=== PATIENT | male | born 1940 | race African-American/Black ===

== ENCOUNTER 2017-07-04 10:51 | Emergency (ER) | payer MEDICARE, MEDICAID ==
[~2017-07-04] VITALS: Ht 177.8 cm; Wt 68.0 kg
[~2017-07-04 10:51] MED LIST: AMLODIPINE; ATENOLOL; ATORVASTATIN; DIALYVITE; DICLOFENAC; DIPHENOXYLATE; RENVELA
[2017-07-04] MEDS ORDERED: ONDANSETRON HCL 4MG/2ML VIAL IV STA (11:04)
[2017-07-04] MEDS ORDERED: FAMOTIDINE 20MG/2ML VIAL IV STA (11:04)
[2017-07-04 11:21] VITALS: BP 132/70
[2017-07-04 11:43] LABS: MEAN CORPUSCULAR HEMOGLOBIN 30.9 pg (28.0-32.0); MEAN CORPUSCULAR VOLUME 92.3 fL (80.0-94.0); MEAN PLATELET VOLUME 9.1 fl (7.4-10.4); PLATELET 166 x1000/uL (130-400); RED BLOOD CELL COUNT 3.57 mill/uL (4.7-6.1); RED CELL DISTRIBUTION WIDTH 14.3 % (11.6-14.6)
[2017-07-04 11:50] LABS: PROTHROMBIN TIME 10.4 sec (9.4-11.6)
[2017-07-04 12:01] LABS: CARBON DIOXIDE 37 mEq/L (21-32); CHLORIDE 94 mEq/L (98-107); TROPONIN I < 0.02 ng/mL (0.00-0.04)
[2017-07-04 12:26] LABS: PLATELET ESTIMATE NORMAL
== END 2017-07-04 12:32 | disposition left against medical advice (07) ==
LOC: ER 10:58 → CANBEDREQ 12:24 → ER 12:32
DX: R07.89 Other chest pain (principal); E87.2 Acidosis; D64.9 Anemia, unspecified; N18.6 End stage renal disease; F17.200 Nicotine dependence, unspecified, uncomplicated; I12.0 Hypertensive chronic kidney disease with stage 5 chronic kidney disease or end stage renal disease; Z99.2 Dependence on renal dialysis
CPT/HCPCS: 36415; 71010; 80053; 83605; 83690; 84484; 85025; 85610; 93005; 99285; J3490

== ENCOUNTER 2017-12-21 23:50 | Inpatient (IN) | payer MEDICARE, MEDICAID ==
[~2017-12-21] VITALS: Ht 175.3 cm; Wt 68.5 kg
[~2017-12-21 23:50] MED LIST changes: -AMLODIPINE; +AMLODIPINE PO; +ASPI-1159 PO; -ATENOLOL; -ATORVASTATIN; +ATORVASTATIN PO; -DIALYVITE; +DIALYVITE PO; -DICLOFENAC; +DICLOFENAC PO; -DIPHENOXYLATE; +DIPHENOXYLATE PO; +FAMO-134 PO; +PROC10TA PO; -RENVELA
[2017-12-21] MEDS ORDERED: ALBUTEROL (0.083%) 2.5MG/3ML NEB HHN STA (23:57)
[2017-12-21] MEDS ORDERED: METHYLPREDNISOLONE SOD SUCC 125 MG/2 ML VIAL IV STA (23:57)
[2017-12-21] MEDS ORDERED: IPRATROPIUM BROMIDE (0.02%) 0.5MG/2.5ML NEB HHN STA (23:57)
[2017-12-22] MEDS ORDERED: ASPIRIN 81MG TABLET PO ONE
[2017-12-22] MEDS ORDERED: LEVOFLOXACIN 750MG PREMIX 150 ML IV ONE
[2017-12-22] MEDS ORDERED: MAGNESIUM 2 G PREMIX 50 ML IV ONE
[2017-12-22 00:32] LABS: BG BASE EXCESS -0.7 mmol/L (-2.0-2.0); BG CARBOXYHEMOGLOBIN 1.8 % (0.5-1.5); BG DEOXYHEMOGLOBIN 4.4 % (0.0-5.0); BG FRACTION INSPIRED OXYGEN 60; BG HCO3 ACT 30.3 mmol/L (22.0-26.0); BG METHEMOGLOBIN 0.3 % (0.0-1.5); BG OXYHEMOGLOBIN 93.5 % (94.0-97.0); BG PCO2 86.5 mmHg (35.0-45.0); BG PH 7.162 (7.350-7.450); BG PO2 104.7 mmHg (75.0-100.0); BG SAMPLE SITE LEFT RADIAL; BG TOTAL HEMOGLOBIN 13.2 g/dL (12.0-18.0); BG VENT MODE MASK - AEROSOL
[2017-12-22 00:52] LABS: BASOPHILS % 0.9 % (0.0-2.0); EOSINOPHILS % 2.8 % (0.0-5.0); HEMATOCRIT. 38.8 % (42.0-52.0); HEMOGLOBIN. 12.6 g/dL (14.0-18.0); LYMPHOCYTES % 44.5 % (20.0-50.0); MEAN CORPUSCULAR HEMOGLOBIN 31.9 pg (28.0-32.0); MEAN CORPUSCULAR VOLUME 98.2 fL (80.0-94.0); MEAN PLATELET VOLUME 9.3 fl (7.4-10.4); NEUTROPHILS % 46.8 % (40.0-76.0); PLATELET 297 x1000/uL (130-400); RED BLOOD CELL COUNT 3.95 mill/uL (4.7-6.1); RED CELL DISTRIBUTION WIDTH 16.8 % (11.6-14.6)
[2017-12-22 00:53] LABS: CHLORIDE 95 mEq/L (98-107)
[2017-12-22 00:56] LABS: INR 1.1; PROTHROMBIN TIME 10.9 sec (9.4-11.6)
[2017-12-22 00:57] LABS: ETHANOL BLOOD < 10 mg/dL
[2017-12-22 10:06] VITALS: BP 145/76
[2017-12-22 10:08] VITALS: BP 145/76
[2017-12-22] MEDS ORDERED: ONDANSETRON HCL 4MG/2ML VIAL IV PRN (10:15)
[2017-12-22] MEDS ORDERED: MAGNESIUM/ALUMINUM HYDROXIDE/SIMETHICONE 30ML UDC PO PRN (10:15)
[2017-12-22] MEDS ORDERED: NA PHOS,M-B/NA PHOS,DI-BA ENEMA 118ML PR PRN (10:15)
[2017-12-22] MEDS ORDERED: ENOXAPARIN 40MG/0.4ML SYR SUBCUT SCH (10:15)
[2017-12-22] MEDS ORDERED: HYDROMORPHONE HCL/PF 2MG/ML CPJ IV PRN (10:15)
[2017-12-22] MEDS ORDERED: CLONIDINE 0.1MG TABLET PO PRN (10:15)
[2017-12-22] MEDS ORDERED: LEVOFLOXACIN 500MG PREMIX 100 ML IV SCH (10:15)
[2017-12-22] MEDS ORDERED: HYDROCODONE/ACETAMINOPHEN 5/325MG TABLET PO PRN (10:15)
[2017-12-22] MEDS ORDERED: IPRATROPIUM/ALBUTEROL 0.5-3(2.5)MG/3ML NEB INH PRN (10:15)
[2017-12-22] MEDS ORDERED: ACETAMINOPHEN 325MG TABLET PO PRN (10:15)
[2017-12-22] MEDS ORDERED: DEXTROSE 50% WATER 50ML SYRINGE IV PRN (10:30)
[2017-12-22] MEDS: BLOOD SUGAR DIAGNOSTIC STRIP TEST SCH ×3 (12:15→21:00)
[2017-12-22] MEDS: INSULIN LISPRO 100 UNITS/ML SUBCUT SCH ×3 (12:15→21:00)
[2017-12-22] MEDS: CARVEDILOL 6.25 MG TABLET PO SCH ×2 (12:30→21:10)
[2017-12-22] MEDS: ENOXAPARIN 30MG/0.3ML SYR SUBCUT SCH (12:34)
[2017-12-22 13:30] VITALS: BP 146/71
[2017-12-22 16:13] VITALS: BP 148/79
[2017-12-22] MEDS ORDERED: DIPHENOXYLATE PO PRN (19:00)
[2017-12-22] MEDS ORDERED: DIPHENOXYLATE/ATROPINE 2.5/0.025MG TABLET PO PRN (19:30)
[2017-12-22 20:00] VITALS: BP 123/66
[2017-12-22] MEDS: ATORVASTATIN CALCIUM 40MG TABLET PO SCH (21:10)
[2017-12-22] MEDS: GUAIFENESIN 200MG/10ML SUGAR FREE UDC PO PRN (21:17)
[2017-12-22 22:00] VITALS: BP 123/60
[2017-12-22] MEDS: LORAZEPAM 2MG/ML CPJ IV PRN (23:55)
[2017-12-23] VITALS (10 sets, daily range): BP systolic 113–136; BP diastolic 51–77
[2017-12-23] MEDS: INSULIN LISPRO 100 UNITS/ML SUBCUT SCH ×4 (07:51→20:46)
[2017-12-23] MEDS: BLOOD SUGAR DIAGNOSTIC STRIP TEST SCH ×4 (07:51→20:46)
[2017-12-23] MEDS: DICLOFENAC SODIUM 75MG DR (EC) TABLET PO SCH (08:18)
[2017-12-23] MEDS: FAMOTIDINE 20MG TABLET PO SCH (08:18)
[2017-12-23] MEDS: DOCUSATE SODIUM 100MG CAPSULE PO PRN (08:18)
[2017-12-23] MEDS: ENOXAPARIN 30MG/0.3ML SYR SUBCUT SCH (08:19)
[2017-12-23] MEDS: CARVEDILOL 6.25 MG TABLET PO SCH ×2 (08:19→20:43)
[2017-12-23] MEDS: ASPIRIN 81MG EC TABLET PO SCH (08:19)
[2017-12-23] MEDS: NICOTINE 21MG PATCH TD SCH (08:19)
[2017-12-23] MEDS: FOLIC ACID/VITAMIN B COMP W-C TABLET PO SCH (08:25)
[2017-12-23] MEDS: GUAIFENESIN 200MG/10ML SUGAR FREE UDC PO PRN ×2 (08:31→23:54)
[2017-12-23] MEDS ORDERED: FAMOTIDINE(NEO) 1MG/ML SUSP PO SCH (09:00)
[2017-12-23] MEDS ORDERED: DICLOFENAC 75 MG PO SCH (09:00)
[2017-12-23] MEDS ORDERED: DIALYVITE PO SCH (09:00)
[2017-12-23 10:31] LABS: BASOPHILS % 0.9 % (0.0-2.0); EOSINOPHILS % 0.7 % (0.0-5.0); HEMOGLOBIN. 10.6 g/dL (14.0-18.0); LYMPHOCYTES % 16.1 % (20.0-50.0); MEAN CORPUSCULAR HEMOGLOBIN 32.2 pg (28.0-32.0); MONOCYTES % 8.3 % (2.0-8.0); PLATELET 185 x1000/uL (130-400); RED CELL DISTRIBUTION WIDTH 16.9 % (11.6-14.6)
[2017-12-23 10:43] LABS: CHLORIDE 104 mEq/L (98-107)
[2017-12-23 10:53] LABS: LDL CHOLESTEROL 46 mg/dL (5-100)
[2017-12-23 10:55] LABS: T4 FREE 1.31 ng/dL (0.76-1.46)
[2017-12-23 11:01] LABS: HDL CHOLESTEROL 41 mg/dL (40-59)
[2017-12-23] MEDS: ATORVASTATIN CALCIUM 40MG TABLET PO SCH (20:42)
[2017-12-23] MEDS ORDERED: LEVOFLOXACIN 500MG PREMIX 100 ML IV SCH (23:00)
[2017-12-23] MEDS: LORAZEPAM 2MG/ML CPJ IV PRN (23:45)
[2017-12-24] VITALS (8 sets, daily range): BP systolic 110–145; BP diastolic 65–79
[2017-12-24 06:14] LABS: EOSINOPHILS % 2.7 % (0.0-5.0); HEMATOCRIT. 31.3 % (42.0-52.0); HEMOGLOBIN. 10.5 g/dL (14.0-18.0); MEAN CORPUSCULAR HEMOGLOBIN 32.3 pg (28.0-32.0); MEAN CORPUSCULAR VOLUME 96.6 fL (80.0-94.0); MEAN PLATELET VOLUME 9.2 fl (7.4-10.4); MONOCYTES % 9.4 % (2.0-8.0); NEUTROPHILS % 54.9 % (40.0-76.0); PLATELET 183 x1000/uL (130-400); RED BLOOD CELL COUNT 3.24 mill/uL (4.7-6.1); RED CELL DISTRIBUTION WIDTH 16.5 % (11.6-14.6)
[2017-12-24] MEDS: BLOOD SUGAR DIAGNOSTIC STRIP TEST SCH ×4 (07:48→21:08)
[2017-12-24] MEDS: INSULIN LISPRO 100 UNITS/ML SUBCUT SCH ×4 (08:00→21:00)
[2017-12-24] MEDS: CARVEDILOL 6.25 MG TABLET PO SCH ×2 (08:27→21:05)
[2017-12-24] MEDS: FAMOTIDINE 20MG TABLET PO SCH (08:33)
[2017-12-24] MEDS: DICLOFENAC SODIUM 75MG DR (EC) TABLET PO SCH (08:33)
[2017-12-24] MEDS: FOLIC ACID/VITAMIN B COMP W-C TABLET PO SCH (08:33)
[2017-12-24] MEDS: DOCUSATE SODIUM 100MG CAPSULE PO PRN (08:34)
[2017-12-24] MEDS: ASPIRIN 81MG EC TABLET PO SCH (08:34)
[2017-12-24] MEDS: NICOTINE 21MG PATCH TD SCH (08:34)
[2017-12-24] MEDS: ENOXAPARIN 30MG/0.3ML SYR SUBCUT SCH (08:35)
[2017-12-24] MEDS ORDERED: DIPHENOXYLATE/ATROPINE 2.5/0.025MG TABLET PO PRN (16:15)
[2017-12-24] MEDS: ATORVASTATIN CALCIUM 40MG TABLET PO SCH (21:05)
== END 2017-12-24 21:15 | disposition home or self-care (01) | DRG 177 ==
LOC: ER 23:50 → 5EST 12-22 01:08 → EDBEDREQ 12-22 01:10 → ENRESERV 12-22 08:48
PROVIDERS: ADMIT Internal Medicine; ATTEND Internal Medicine
PROC: 5A09357 Assistance with Respiratory Ventilation, Less than 24 Consecutive Hours, Continuous Positive Airway Pressure (ICD-10-PCS; principal; 2017-12-22)
PROC: 5A1D70Z Performance of Urinary Filtration, Intermittent, Less than 6 Hours Per Day (ICD-10-PCS; 2017-12-22)
PROC: 5A1D70Z Performance of Urinary Filtration, Intermittent, Less than 6 Hours Per Day (ICD-10-PCS; 2017-12-23)
DX: J69.0 Pneumonitis due to inhalation of food and vomit (principal); N18.6 End stage renal disease; J96.22 Acute and chronic respiratory failure with hypercapnia; I13.2 Hypertensive heart and chronic kidney disease with heart failure and with stage 5 chronic kidney disease, or end stage renal disease; E87.2 Acidosis; Z76.82 Awaiting organ transplant status; E46 Unspecified protein-calorie malnutrition; I50.43 Acute on chronic combined systolic (congestive) and diastolic (congestive) heart failure; J44.1 Chronic obstructive pulmonary disease with (acute) exacerbation; J44.0 Chronic obstructive pulmonary disease with (acute) lower respiratory infection; E11.51 Type 2 diabetes mellitus with diabetic peripheral angiopathy without gangrene; I25.5 Ischemic cardiomyopathy; E78.5 Hyperlipidemia, unspecified; D64.9 Anemia, unspecified; I25.118 Atherosclerotic heart disease of native coronary artery with other forms of angina pectoris; E11.22 Type 2 diabetes mellitus with diabetic chronic kidney disease; F17.210 Nicotine dependence, cigarettes, uncomplicated; I25.2 Old myocardial infarction; Z79.82 Long term (current) use of aspirin; Z95.1 Presence of aortocoronary bypass graft; Z95.2 Presence of prosthetic heart valve; Z86.73 Personal history of transient ischemic attack (TIA), and cerebral infarction without residual deficits; Z79.899 Other long term (current) drug therapy; Z71.6 Tobacco abuse counseling; Z99.2 Dependence on renal dialysis; Z68.22 Body mass index [BMI] 22.0-22.9, adult
CPT/HCPCS: 36415; 36600; 71045; 80048; 80053; 80061; 82375; 82805; 82962; 83605; 83690; 83880; 84439; 84443; 84484; 85025; 85610; 87040; 87804; 93005; 93306; 93970; 94640; 94660; 96365; 96375; 99291; G0482; J1650; J1956; J2060; J2930; J3475; J7030; J7050; J7611; J7620

== ENCOUNTER 2018-01-28 00:37 | Inpatient (IN) | payer MEDICARE, MEDICAID ==
[~2018-01-28] VITALS: Ht 154.7 cm; Wt 73.1 kg
[~2018-01-28 00:37] MED LIST changes: -PROC10TA PO; +PROC10TA13 PO
[2018-01-28] MEDS ORDERED: NITROGLYCERIN 0.4MG TABLET SL SL PRN (01:00)
[2018-01-28] MEDS ORDERED: ASPIRIN 81MG TABLET PO ONE (01:00)
[2018-01-28] MEDS ORDERED: FUROSEMIDE 40MG/4ML VIAL IV ONE (01:00)
[2018-01-28] MEDS ORDERED: NITROGLYCERIN 0.4MG TABLET SL SL ONE (01:01)
[2018-01-28 01:26] LABS: BASOPHILS % 1.1 % (0.0-2.0); HEMATOCRIT. 39.3 % (42.0-52.0); HEMOGLOBIN. 12.8 g/dL (14.0-18.0); LYMPHOCYTES % 43.2 % (20.0-50.0); MEAN CORPUSCULAR HEMOGLOBIN 32.5 pg (28.0-32.0); MEAN CORPUSCULAR VOLUME 99.7 fL (80.0-94.0); MEAN PLATELET VOLUME 9.4 fl (7.4-10.4); MONOCYTES % 5.1 % (2.0-8.0); NEUTROPHILS % 47.6 % (40.0-76.0); PLATELET 202 x1000/uL (130-400); RED BLOOD CELL COUNT 3.94 mill/uL (4.7-6.1); RED CELL DISTRIBUTION WIDTH 15.1 % (11.6-14.6)
[2018-01-28 01:34] LABS: CHLORIDE 103 mEq/L (98-107)
[2018-01-28 01:37] LABS: INR 1.1; PARTIAL THROMBOPLASTIN TIME 24.3 sec (23.4-31.0); PROTHROMBIN TIME 11.4 sec (9.4-11.6)
[2018-01-28 10:20] VITALS: BP 137/111
[2018-01-28] MEDS ORDERED: IPRATROPIUM/ALBUTEROL 0.5-3(2.5)MG/3ML NEB HHN PRN (11:15)
[2018-01-28] MEDS ORDERED: CLONIDINE 0.1MG TABLET PO PRN (11:15)
[2018-01-28] MEDS ORDERED: DEXTROSE 50% WATER 50ML SYRINGE IV PRN (11:15)
[2018-01-28 12:00] VITALS: BP 144/60
[2018-01-28] MEDS: AMLODIPINE 10MG TABLET PO SCH (12:00)
[2018-01-28] MEDS: FOLIC ACID/VITAMIN B COMP W-C TABLET PO SCH (12:20)
[2018-01-28] MEDS: ASPIRIN 81MG TABLET PO SCH (12:21)
[2018-01-28] MEDS: BLOOD SUGAR DIAGNOSTIC STRIP TEST SCH ×3 (12:22→21:11)
[2018-01-28] MEDS: INSULIN LISPRO 100 UNITS/ML SUBCUT SCH ×2 (12:22→21:00)
[2018-01-28] MEDS ORDERED: LEVOFLOXACIN 500MG TABLET PO SCH (15:00)
[2018-01-28] MEDS ORDERED: BUDESONIDE 0.5MG/2ML NEB HHN SCH (15:00)
[2018-01-28] MEDS: ENOXAPARIN 30MG/0.3ML SYR SUBCUT SCH (15:25)
[2018-01-28 16:00] VITALS: BP 120/69
[2018-01-28 20:00] VITALS: BP 156/74
[2018-01-28] MEDS ORDERED: ATORVASTATIN CALCIUM 10MG TABLET PO SCH (21:00)
[2018-01-29] VITALS: BP 101/50
[2018-01-29 04:00] VITALS: BP 112/56
[2018-01-29] MEDS: BLOOD SUGAR DIAGNOSTIC STRIP TEST SCH ×2 (07:40→12:28)
[2018-01-29 08:00] VITALS: BP 131/58
[2018-01-29] MEDS: INSULIN LISPRO 100 UNITS/ML SUBCUT SCH ×2 (08:10→12:28)
[2018-01-29] MEDS: FOLIC ACID/VITAMIN B COMP W-C TABLET PO SCH (08:24)
[2018-01-29] MEDS: AMLODIPINE 10MG TABLET PO SCH (08:24)
[2018-01-29] MEDS: ASPIRIN 81MG TABLET PO SCH (08:24)
[2018-01-29] MEDS: ENOXAPARIN 30MG/0.3ML SYR SUBCUT SCH (08:25)
[2018-01-29 10:19] LABS: EOSINOPHILS % 4.7 % (0.0-5.0); HEMATOCRIT. 36.7 % (42.0-52.0); HEMOGLOBIN. 12.2 g/dL (14.0-18.0); LYMPHOCYTES % 25.4 % (20.0-50.0); MEAN CORPUSCULAR HEMOGLOBIN 32.8 pg (28.0-32.0); MEAN CORPUSCULAR VOLUME 98.9 fL (80.0-94.0); MONOCYTES % 9.9 % (2.0-8.0); PLATELET 164 x1000/uL (130-400); RED BLOOD CELL COUNT 3.71 mill/uL (4.7-6.1); RED CELL DISTRIBUTION WIDTH 15.4 % (11.6-14.6)
[2018-01-29 12:00] VITALS: BP 128/53
[2018-01-29 12:55] VITALS: BP 137/51
[2018-01-29 17:01] LABS: *AMPHETAMINES SCREEN URINE NEGATIVE (NEGATIVE)
[2018-01-29 17:02] LABS: *BARBITURATES SCREEN URINE NEGATIVE (NEGATIVE); CANNABINOID URINE SCREEN NEGATIVE (NEGATIVE); METHADONE URINE SCREEN NEGATIVE (NEGATIVE); OPIATES URINE SCREEN PRESUMTIVE POSITIVE (NEGATIVE); PHENCYCLIDINE URINE SCREEN NEGATIVE (NEGATIVE)
[2018-01-29 17:03] LABS: *BENZODIAZEPINES SCREEN URINE NEGATIVE (NEGATIVE); *COCAINE SCREEN URINE NEGATIVE (NEGATIVE)
== END 2018-01-29 14:35 | disposition home or self-care (01) | DRG 871 ==
LOC: ER 00:46 → EDBEDREQSVC 01:33 → EDBEDREQTM 01:33 → EDBEDREQ 01:33 → EDBEDREQSVC 06:02 → 7WST 06:02 → ENRESERV 09:53
PROVIDERS: ADMIT Internal Medicine; ATTEND Internal Medicine
PROC: 5A09357 Assistance with Respiratory Ventilation, Less than 24 Consecutive Hours, Continuous Positive Airway Pressure (ICD-10-PCS; principal; 2018-01-28)
DX: A41.9 Sepsis, unspecified organism (principal); J96.00 Acute respiratory failure, unspecified whether with hypoxia or hypercapnia; N18.6 End stage renal disease; I50.23 Acute on chronic systolic (congestive) heart failure; J18.9 Pneumonia, unspecified organism; I13.2 Hypertensive heart and chronic kidney disease with heart failure and with stage 5 chronic kidney disease, or end stage renal disease; E87.2 Acidosis; E44.1 Mild protein-calorie malnutrition; J44.1 Chronic obstructive pulmonary disease with (acute) exacerbation; E11.22 Type 2 diabetes mellitus with diabetic chronic kidney disease; D63.8 Anemia in other chronic diseases classified elsewhere; Z95.1 Presence of aortocoronary bypass graft; F17.210 Nicotine dependence, cigarettes, uncomplicated; E78.5 Hyperlipidemia, unspecified; E66.9 Obesity, unspecified; I25.10 Atherosclerotic heart disease of native coronary artery without angina pectoris; Z86.73 Personal history of transient ischemic attack (TIA), and cerebral infarction without residual deficits; Z99.2 Dependence on renal dialysis; Z79.899 Other long term (current) drug therapy; Z79.82 Long term (current) use of aspirin; Z71.6 Tobacco abuse counseling; Z71.3 Dietary counseling and surveillance; Z68.30 Body mass index [BMI] 30.0-30.9, adult
CPT/HCPCS: 36415; 71045; 80048; 80053; 80305; 82962; 83605; 83880; 84145; 85025; 85610; 85730; 87040; 93005; 94660; 96374; 99291; J1650; J1940; J7626